=== PATIENT | female | born 1990 | race American Indian/Alaskan Native ===

== ENCOUNTER 2017-05-21 18:48 | Emergency (ER) | payer MEDICAID, OTHER ==
[2017-05-21 18:49] VITALS: BMI 37.5
[2017-05-21 18:57] VITALS: BP 118/74; PULSE 74; RESP 18; TEMP 97.9; O2SAT 99
--- NOTE | 2017-05-21 19:12 | ED PDOC ---
HPI: General Adult Time Seen by Provider: 05/21/17 18:57 Chief Complaint (Nursing): Medical Clearance Chief Complaint (Provider): No current symptoms History Per: Patient History/Exam Limitations: no limitations Onset/Duration Of Symptoms: Days Have you had recent travel within the past 21 days to any of the following countries: [place], [place], [place] or [place]?: No Current Symptoms Are (Timing): Still Present Additional Complaint(s): Pt reports 2 days of nausea and watery diarrhea, which have already resolved. Pt called out of work and needs a note to return tomorrow. Past Medical History Reviewed: Historical Data, Nursing Documentation, Vital Signs Vital Signs: Last Vital Signs Temp 97.9 F 05/21/17 18:55 Pulse 74 05/21/17 18:55 Resp 18 05/21/17 18:55 BP 118/74 05/21/17 18:55 Pulse Ox 99 05/21/17 19:17 - Medical History PMH: Anemia, Migraine Denies: Emphysema, Chronic Kidney Disease - Surgical History Surgical History: No Surg Hx - Family History Family History: States: Unknown Family Hx - Living Arrangements Living Arrangements: With Family - Social History Current smoker - smoking cessation education provided: No Alcohol: None Drugs: Denies - Immunization History Hx Tetanus Toxoid Vaccination: Yes - Home Medications Home Medications: Ambulatory Orders Medication Instructions Recorded Ciprofloxacin HCl [Cipro] 500 mg PO BID #10 tablet 03/07/16 Docusate [Colace] 100 mg PO BID #0 cap 03/07/16 Ferrous Sulfate [Feosol] 325 mg PO BID #0 tablet 03/07/16 Metronidazole [Flagyl] 500 mg PO Q8 #15 tablet 03/07/16 - Allergies Allergies/Adverse Reactions: Allergies Allergy/AdvReac Type Severity Reaction Status Date / Time No Known Allergies Allergy Verified 01/02/16 14:50 Review of Systems ROS Statement: Except As Marked, All Systems Reviewed And Found Negative Gastrointestinal: Negative for: Nausea, Vomiting, Abdominal Pain, Diarrhea Physical Exam - Reviewed Nursing Documentation Reviewed: Yes Vital Signs Reviewed: Yes - Physical Exam Appears: Positive for: Well, Non-toxic, No Acute Distress Head Exam: Positive for: ATRAUMATIC, NORMAL INSPECTION, NORMOCEPHALIC Skin: Positive for: Normal Color, Warm, DRY Eye Exam: Positive for: Normal appearance ENT: Positive for: Normal ENT Inspection Neck: Positive for: Normal, Painless ROM Cardiovascular/Chest: Positive for: Regular Rate, Rhythm Respiratory: Positive for: CNT, Normal Breath Sounds Gastrointestinal/Abdominal: Positive for: Normal Exam, Bowel Sounds, Soft Back: Positive for: Normal Inspection Extremity: Positive for: Normal ROM Neurologic/Psych: Positive for: Alert, Oriented - ECG O2 Sat by Pulse Oximetry: 99 Disposition - Clinical Impression Clinical Impression: Normal exam - Patient ED Disposition Is Patient to be Admitted: No - Disposition Disposition: Routine/Home Disposition Time: 19:18 Condition: GOOD Instructions: Normal Exam (ED) Forms: [facility] ED School/Work Excuse
== END 2017-05-21 19:53 | disposition home or self-care (01) ==
LOC: H.ER 18:48
DX: Z00.8 Encounter for other general examination (principal)

== ENCOUNTER 2017-11-21 10:23 | Emergency (ER) | payer OTHER ==
[2017-11-21 10:24] VITALS: BMI 37.5
[2017-11-21 10:54] VITALS: BP 108/70; PULSE 83; RESP 18; TEMP 97; O2SAT 100
[2017-11-21 12:23] LABS: SPERM URINE RARE /hpf; SQUAMOUS EPITHIAL 8 /hpf (0-5); URINE AMORPHOUS SEDIMENT RARE /ul (<OCC); URINE BILIRUBIN NEGATIVE (NEGATIVE); URINE BLOOD SMALL (NEGATIVE); URINE CLARITY CLOUDY (Clear); URINE COLOR YELLOW (YELLOW); URINE GLUCOSE (UA) NEG (Normal); URINE LEUKOCYTE ESTERASE SMALL Leu/uL (Negative); URINE NITRATE NEGATIVE (NEGATIVE); URINE PROTEIN NEGATIVE (NEGATIVE); URINE UROBILINOGEN 0.2-1.0 mg/dL (0.2-1.0)
--- NOTE | 2017-11-21 12:51 | ED PDOC ---
HPI: Abdomen Time Seen by Provider: 11/21/17 10:51 Chief Complaint (Nursing): Abdominal Pain History Per: Patient History/Exam Limitations: no limitations Onset/Duration Of Symptoms: Days (2), Gradual Current Symptoms Are (Timing): Still Present Severity: Mild Location Of Pain/Discomfort: RUQ Quality Of Discomfort: Sharp Associated Symptoms: Nausea, Vomiting. denies: Fever, Chills, Diarrhea, Back Pain, Chest Pain, Constipation, Urinary Symptoms Exacerbating Factors: None Alleviating Factors: None Additional History Per: Patient Additional Complaint(s): Pt c/o abdominal pain, nausea, vomiting x1 day. LMP: 10/18/2017 similar sx in the past due cholecystitis a year ago, no trauma no urinary complaints Past Medical History Reviewed: Historical Data, Nursing Documentation, Vital Signs Vital Signs: Last Vital Signs Temp 97 F L 11/21/17 10:53 Pulse 83 11/21/17 10:53 Resp 18 11/21/17 10:53 BP 108/70 11/21/17 10:53 Pulse Ox 100 11/21/17 12:52 - Medical History PMH: Anemia, Migraine Denies: Emphysema, Chronic Kidney Disease - Family History Family History: States: Unknown Family Hx - Living Arrangements Living Arrangements: With Family - Social History Current smoker - smoking cessation education provided: No - Immunization History Hx Tetanus Toxoid Vaccination: Yes - Home Medications Home Medications: Ambulatory Orders Medication Instructions Recorded Ciprofloxacin HCl [Cipro] 500 mg PO BID #10 tablet 03/07/16 Docusate [Colace] 100 mg PO BID #0 cap 03/07/16 Ferrous Sulfate [Feosol] 325 mg PO BID #0 tablet 03/07/16 Metronidazole [Flagyl] 500 mg PO Q8 #15 tablet 03/07/16 Famotidine [Pepcid] 20 mg PO BID PRN #20 tab 11/21/17 Ondansetron [Zofran Odt] 4 mg PO TID PRN #14 odt 11/21/17 - Allergies Allergies/Adverse Reactions: Allergies Allergy/AdvReac Type Severity Reaction Status Date / Time No Known Allergies Allergy Verified 01/02/16 14:50 Review of Systems ROS Statement: Except As Marked, All Systems Reviewed And Found Negative Constitutional: Negative for: Fever, Chills Cardiovascular: Negative for: Chest Pain, Palpitations Respiratory: Negative for: Cough, Shortness of Breath Gastrointestinal: Positive for: Nausea, Vomiting, Abdominal Pain. Negative for : Diarrhea Genitourinary Female: Negative for: Dysuria Neurological: Negative for: Weakness, Numbness Physical Exam - Reviewed Nursing Documentation Reviewed: Yes Vital Signs Reviewed: Yes - Physical Exam Appears: Positive for: Uncomfortable Head Exam: Positive for: ATRAUMATIC, NORMAL INSPECTION, NORMOCEPHALIC Eye Exam: Positive for: Normal appearance Neck: Positive for: Normal, Painless ROM, Supple Cardiovascular/Chest: Positive for: Regular Rate, Rhythm, Chest Non Tender. Negative for: Edema, Gallop, Murmur, Bradycardia, Tachycardia Respiratory: Positive for: Normal Breath Sounds. Negative for: Decreased Breath Sounds, Accessory Muscle Use, Crackles, Rales, Rhonchi, Stridor, Wheezing , Respiratory Distress Pulses-Radial (L): 2+ Pulses-Radial (R): 2+ Gastrointestinal/Abdominal: Positive for: Normal Exam, Bowel Sounds, Soft. Negative for: Tenderness Back: Positive for: Normal Inspection. Negative for: L CVA Tenderness, R CVA Tenderness Extremity: Positive for: Normal ROM. Negative for: Tenderness, Pedal Edema, Calf Tenderness, Capillary Refill, Deformity, Swelling Neurologic/Psych: Positive for: Alert, manager medicaid II-XII, Oriented. Negative for: Motor/Sensory Deficits - Laboratory Results Result Diagrams: 11/21/17 12:58 11/21/17 12:58 - ECG O2 Sat by Pulse Oximetry: 100 - Progress ED Course And Treament: CT abdomen and pelvis with IV contrast performed 03/05/16, abdominal ultrasound performed 03/05/16 TECHNIQUE: Sonographic evaluation of the right upper quadrant of the abdomen. FINDINGS: LIVER: Measures 19.5 cm in length and appears otherwise unremarkable. No focal hepatic mass identified. Main portal vein appears patent with normal directional flow. No intrahepatic bile duct dilatation. GALLBLADDER: No gallstones. Previously described 5 mm non shadowing echogenic focus on ultrasound performed 03/05/16 is not appreciated on the current examination. No gallbladder wall thickening or pericholecystic edema. Negative sonographic Roach's sign as assessed by the pearl restorer. COMMON BILE DUCT: Measures 4 mm. PANCREAS: Not well-visualized. RIGHT KIDNEY: Measures 9.9 x 4.2 x 5.0 cm. No obstructing calculus or hydronephrosis identified. AORTA: Limited visualization appears grossly unremarkable. IVC: Limited visualization appears grossly unremarkable. OTHER FINDINGS: None . IMPRESSION: Mild hepatomegaly. Re-evaluation Time: 15:23 Condition: Improved Disposition - Clinical Impression Clinical Impression: Gastritis - Patient ED Disposition Is Patient to be Admitted: No Counseled Patient/Family Regarding: Studies Performed, Diagnosis, Need For Followup, Rx Given - Disposition Referrals: [facility] [Outside] (2 to 3 days) Disposition: Routine/Home Disposition Time: 15:24 Condition: GOOD Prescriptions: Famotidine [Pepcid] 20 mg PO BID PRN #20 tab PRN Reason: Pain, Mild (1-3) Ondansetron [Zofran Odt] 4 mg PO TID PRN #14 odt PRN Reason: Nausea/Vomiting Instructions: Gastritis (ED) Forms: [facility] (Sammarinese), [facility] ED School/Work Excuse
[2017-11-21 13:08] LABS: BASO % 0.3 % (0.0-2.0); EOS # 0.1 K/uL (0.0-0.7); EOS % 0.8 % (0.0-4.0); LYMPH # 1.2 K/uL (1.0-4.3); MEAN CELL VOLUME 78.5 fl (81.0-99.0); MEAN CORPUSCULAR HGB CONC 31.9 g/dL (33.0-37.0); MONO # 0.6 K/uL (0.0-0.8); MONO % 5.9 % (0.0-10.0); NRBC % 0.2 % (0.0-0.0); RBC 4.39 Mil/uL (3.80-5.20); RED CELL DISTRIBUTION WIDTH 17.6 % (11.5-14.5)
[2017-11-21 13:18] LABS: ALT/SGPT 37 U/L (9-52); AMYLASE 67 U/L (30-110); AST/SGOT 21 U/L (14-36); BLOOD UREA NITROGEN 9 mg/dl (7-17); CALCIUM 9.2 mg/dL (8.4-10.2); GFR AFRICAN-AMERICAN > 60; GFR NON-AFRICAN AMERICAN > 60; LIPASE 37 U/L (23-300)
[2017-11-21 13:20] LABS: ALB/GLOB RATIO 0.9 (1.0-2.1)
[2017-11-21 13:23] LABS: WHITE BLOOD COUNT 9.9 K/uL (4.8-10.8)
--- NOTE | 2017-11-21 14:24 | RAD ---
HISTORY: abd pain COMPARISON: No prior. FINDINGS: BOWEL: There is a nonobstructive bowel gas pattern appreciated. Gas and retained fecal material seen throughout various large-bowel segments mildly and is minimally seen within 1 or 2 small-bowel loops in the left mony abdomen. No free intraperitoneal gas identified. There is no abnormal intra-abdominal calcification identified either. BONES: Normal. OTHER FINDINGS: Borderline cardiomegaly with frontal chest radiograph otherwise unremarkable. IMPRESSION: Nonobstructive bowel gas pattern is identified. Borderline cardiomegaly with a frontal chest radiograph otherwise unremarkable.
--- NOTE | 2017-11-21 15:21 | US ---
HISTORY: ruq abd pain COMPARISON: CT abdomen and pelvis with IV contrast performed 03/05/16, abdominal ultrasound performed 03/05/16 TECHNIQUE: Sonographic evaluation of the right upper quadrant of the abdomen. FINDINGS: LIVER: Measures 19.5 cm in length and appears otherwise unremarkable. No focal hepatic mass identified. Main portal vein appears patent with normal directional flow. No intrahepatic bile duct dilatation. GALLBLADDER: No gallstones. Previously described 5 mm non shadowing echogenic focus on ultrasound performed 03/05/16 is not appreciated on the current examination. No gallbladder wall thickening or pericholecystic edema. Negative sonographic Roach's sign as assessed by the financial foundations associate. COMMON BILE DUCT: Measures 4 mm. PANCREAS: Not well-visualized. RIGHT KIDNEY: Measures 9.9 x 4.2 x 5.0 cm. No obstructing calculus or hydronephrosis identified. AORTA: Limited visualization appears grossly unremarkable. IVC: Limited visualization appears grossly unremarkable. OTHER FINDINGS: None . IMPRESSION: Mild hepatomegaly.
== END 2017-11-21 15:41 | disposition home or self-care (01) ==
LOC: H.ER 10:23
DX: K29.70 Gastritis, unspecified, without bleeding (principal)
CPT/HCPCS: 74022; 76705; 80053; 81003; 81025; 82150; 83690; 85025; 87086; 87181; 87491; 87591; 96374; 99283; J1885

== ENCOUNTER 2017-12-31 18:41 | Emergency (ER) | payer OTHER ==
[2017-12-31 18:41] VITALS: BMI 37.5
[2017-12-31 18:44] VITALS: BP 105/67; PULSE 80; RESP 16; TEMP 98.3; O2SAT 98
--- NOTE | 2017-12-31 20:20 | ED PDOC ---
HPI: General Adult Time Seen by Provider: 12/31/17 20:18 Chief Complaint (Nursing): Medical Clearance Chief Complaint (Provider): Medical Clearance History Per: Patient History/Exam Limitations: no limitations Have you had recent travel within the past 21 days to any of the following countries: [place], [place], [place] or [place]?: No Current Symptoms Are (Timing): Gone Now Additional Complaint(s): 27 year old female with no medical history presents to ED with a request for occupational medical clearance. Patient states that two days ago she had vomiting x3 episodes (non-bloody, non-bilious) which is now resolved associated with diarrhea x3 episodes/per day since onset. Patient reports she did experience mild abdominal pain with her symptoms that resolved spontaneously yesterday. States that her daughter was sick with the same symptoms earlier in the week as well. Otherwise (-) fever (-) cough (-) chest pain (-) SOB (-) travel (-) new foods (-) vaginal bleeding (-) vaginal discharge (-) urinary symptoms. PCP: None Past Medical History Reviewed: Historical Data, Nursing Documentation, Vital Signs Vital Signs: Last Vital Signs Temp 98.3 F 12/31/17 18:42 Pulse 80 12/31/17 18:42 Resp 16 12/31/17 18:42 BP 105/67 12/31/17 18:42 Pulse Ox 98 12/31/17 22:26 - Medical History PMH: Anemia, Migraine Denies: Emphysema, Chronic Kidney Disease - Surgical History Surgical History: No Surg Hx - Family History Family History: States: Unknown Family Hx - Living Arrangements Living Arrangements: With Family - Social History Current smoker - smoking cessation education provided: No Ex-Smoker (has not smoked in the last 12 months): No Alcohol: None Drugs: Denies - Immunization History Hx Tetanus Toxoid Vaccination: Yes - Home Medications Home Medications: Ambulatory Orders Medication Instructions Recorded Ciprofloxacin HCl [Cipro] 500 mg PO BID #10 tablet 03/07/16 Docusate [Colace] 100 mg PO BID #0 cap 03/07/16 Ferrous Sulfate [Feosol] 325 mg PO BID #0 tablet 03/07/16 Metronidazole [Flagyl] 500 mg PO Q8 #15 tablet 03/07/16 Famotidine [Pepcid] 20 mg PO BID PRN #20 tab 11/21/17 Ondansetron [Zofran Odt] 4 mg PO TID PRN #14 odt 11/21/17 Ciprofloxacin [Cipro] 500 mg PO BID #10 tab 11/23/17 - Allergies Allergies/Adverse Reactions: Allergies Allergy/AdvReac Type Severity Reaction Status Date / Time No Known Allergies Allergy Verified 12/31/17 18:42 Review of Systems ROS Statement: Except As Marked, All Systems Reviewed And Found Negative Gastrointestinal: Positive for: Vomiting (resolved), Abdominal Pain (resolved), Diarrhea (still present) Physical Exam - Reviewed Nursing Documentation Reviewed: Yes Vital Signs Reviewed: Yes - Physical Exam Appears: Positive for: Well, Non-toxic, No Acute Distress Head Exam: Positive for: NORMOCEPHALIC Skin: Positive for: Normal Color, Warm, Dry Eye Exam: Positive for: Normal appearance ENT: Positive for: Normal ENT Inspection Neck: Positive for: Normal, Painless ROM, Supple Cardiovascular/Chest: Positive for: Regular Rate, Rhythm. Negative for: Murmur Respiratory: Positive for: Normal Breath Sounds. Negative for: Decreased Breath Sounds, Accessory Muscle Use, Respiratory Distress Gastrointestinal/Abdominal: Positive for: Normal Exam, Bowel Sounds (normal), Soft. Negative for: Tenderness, Mass, Distended, Guarding, Rebound Back: Positive for: Normal Inspection. Negative for: L CVA Tenderness, R CVA Tenderness Extremity: Positive for: Normal ROM. Negative for: Deformity Neurologic/Psych: Positive for: Alert, Oriented, Gait (steady). Negative for: Motor/Sensory Deficits - ECG O2 Sat by Pulse Oximetry: 98 (RA) Pulse Ox Interpretation: Normal Medical Decision Making Medical Decision Makin Initial impression: resolved vomiting, diarrhea, likely viral gastroenteritis Initial plan: * Bentyl 20mg PO * Re-eval 2220 Patient with improvement of presenting symptoms and is stable for discharge home. Condition: stable Patient advised to follow up with PMD/clinic in 1-2 days and to return to ED with any new or worsening symptoms. Scribe Attestation: Documented by Kori Aceves, acting as a scribe for Jennifer Bain PA-C. Provider Scribe Attestation: All medical record entries made by the Scribe were at my direction and personally dictated by me. I have reviewed the chart and agree that the record accurately reflects my personal performance of the history, physical exam, medical decision making, and the department course for this patient. I have also personally directed, reviewed, and agree with the discharge instructions and disposition. Disposition - Clinical Impression Clinical Impression: Diarrhea - Patient ED Disposition Is Patient to be Admitted: No Counseled Patient/Family Regarding: Diagnosis, Need For Followup - Disposition Disposition: Routine/Home Disposition Time: 22:21 Condition: STABLE Instructions: Gastroenteritis (ED), Acute Diarrhea (ED) Forms: [employer] (Slovenian) Print Language: SPANISH
== END 2018-01-01 00:22 | disposition home or self-care (01) ==
LOC: H.ER 18:41
DX: R19.7 Diarrhea, unspecified (principal)

== ENCOUNTER 2018-05-06 13:00 | Emergency (ER) | payer OTHER ==
[2018-05-06 13:01] VITALS: BMI 37.5
[2018-05-06 13:56] LABS: BASO % 0.4 % (0.0-2.0); EOS # 0.2 K/uL (0.0-0.7); HEMOGLOBIN 10.7 g/dL (12.0-16.0); LYMPH # 2.1 K/uL (1.0-4.3); LYMPH % 21.2 % (20.0-40.0); MEAN CELL VOLUME 80.2 fl (81.0-99.0); MEAN CORPUSCULAR HGB CONC 32.4 g/dL (33.0-37.0); MEAN PLATELET VOLUME 7.7 fl (7.2-11.7); MONO # 0.6 K/uL (0.0-0.8); MONO % 6.2 % (0.0-10.0); NEUT % 70.2 % (50.0-75.0); NRBC % 0.1 % (0.0-0.0); RBC 4.09 Mil/uL (3.80-5.20); RED CELL DISTRIBUTION WIDTH 17.6 % (11.5-14.5)
--- NOTE | 2018-05-06 14:08 | ED PDOC ---
HPI: General Adult Time Seen by Provider: 05/06/18 13:14 Chief Complaint (Nursing): Weakness/Neurological Deficit Chief Complaint (Provider): Left Arm Numbness and Tingling History Per: Patient History/Exam Limitations: no limitations Onset/Duration Of Symptoms: Days (x1 week) Additional Complaint(s): 7 y/o female with no significant PMHx presenting for evaluation of left arm numbness and tingling x1 week. Patient has been seen several times for paresthesias and has never followed up as outpatient and has no current PMD. She states the sensation begins in her left shoulder and radiates down her arm. She is also complaining of some acute left arm swelling and mild headache. She denies any trauma, neck pain, fevers, or vomiting. Patient reports her numbness and tingling have been intermittent for months, but concern of the swelling prompted her to present to ED. PMD: None Past Medical History Reviewed: Historical Data Vital Signs: Last Vital Signs Temp 98.8 F 05/06/18 18:18 Pulse 89 05/06/18 18:18 Resp 19 05/06/18 18:18 BP 104/68 05/06/18 18:18 Pulse Ox 99 05/06/18 18:18 - Medical History PMH: Anemia, Migraine Denies: Emphysema, Chronic Kidney Disease - Surgical History Surgical History: No Surg Hx - Family History Family History: States: Unknown Family Hx - Social History Current smoker - smoking cessation education provided: No Alcohol: None Drugs: Denies - Immunization History Hx Tetanus Toxoid Vaccination: Yes - Home Medications Home Medications: Ambulatory Orders Medication Instructions Recorded Ciprofloxacin HCl [Cipro] 500 mg PO BID #10 tablet 03/07/16 Docusate [Colace] 100 mg PO BID #0 cap 03/07/16 Ferrous Sulfate [Feosol] 325 mg PO BID #0 tablet 03/07/16 Metronidazole [Flagyl] 500 mg PO Q8 #15 tablet 03/07/16 Famotidine [Pepcid] 20 mg PO BID PRN #20 tab 11/21/17 Ondansetron [Zofran Odt] 4 mg PO TID PRN #14 odt 11/21/17 Ciprofloxacin [Cipro] 500 mg PO BID #10 tab 11/23/17 - Allergies Allergies/Adverse Reactions: Allergies Allergy/AdvReac Type Severity Reaction Status Date / Time No Known Allergies Allergy Verified 05/06/18 13:06 Review of Systems ROS Statement: Except As Marked, All Systems Reviewed And Found Negative Constitutional: Negative for: Fever Gastrointestinal: Negative for: Vomiting Musculoskeletal: Negative for: Neck Pain Neurological: Positive for: Numbness (and tingling of left arm), Headache Physical Exam - Reviewed Nursing Documentation Reviewed: Yes Vital Signs Reviewed: Yes - Physical Exam Appears: Positive for: Non-toxic, No Acute Distress Head Exam: Positive for: ATRAUMATIC, NORMAL INSPECTION, NORMOCEPHALIC Skin: Positive for: Normal Color, Warm, Dry Eye Exam: Positive for: EOMI, Normal appearance, PERRL ENT: Positive for: Normal ENT Inspection Neck: Positive for: Normal, Painless ROM, Supple Cardiovascular/Chest: Positive for: Regular Rate, Rhythm Respiratory: Positive for: Normal Breath Sounds. Negative for: Respiratory Distress Gastrointestinal/Abdominal: Positive for: Normal Exam, Soft. Negative for: Tenderness Back: Positive for: Normal Inspection. Negative for: L CVA Tenderness, R CVA Tenderness, Vertebral Tenderness Extremity: Positive for: Normal ROM, Swelling (swelling to left wrist) Neurologic/Psych: Positive for: Alert, stain maker II-XII (intact), Oriented, Cerebellar Tests (normal). Negative for: Motor/Sensory Deficits, Aphasia, Facial Droop Comments: Patient is obese. - Laboratory Results Result Diagrams: 05/06/18 13:45 05/06/18 13:45 - ECG ECG: Positive for: Interpreted By Me, Viewed By Co ECG Rhythm: Positive for: Sinus Rhythm (normal at 70bpm) O2 Sat by Pulse Oximetry: 100 (RA) Pulse Ox Interpretation: Normal Medical Decision Making Medical Decision Makin:19 Plan: -CT cervical spine w/o contrast -CT head w/o contrast -CMP -CBC w/ differential -Reevaluation 14:[address] FINDINGS: HEMORRHAGE: No intracranial hemorrhage. BRAIN: No mass effect or edema. No atrophy or chronic microvascular ischemic changes. VENTRICLES: Unremarkable. No hydrocephalus. CALVARIUM: Unremarkable. PARANASAL SINUSES: A partially visualize flat retention cyst in the posterior medial left maxillary sinus is noted. MASTOID AIR CELLS: Unremarkable as visualized. No inflammatory changes. OTHER FINDINGS: None. IMPRESSION: Incidental small flat retention cyst posterior medial left maxillary sinus. Otherwise unremarkable exam. No intracranial hemorrhage or mass effect. 15:38 US of LUE will be ordered for further evaluation. 16:[address] FINDINGS: VERTEBRAE: No fracture. Loss of normal lordosis may be related to positioning/ spasm. No destructive bony lesion. DISCS/SPINAL CANAL/NEURAL FORAMINA: No significant central canal or neural foraminal stenosis. Discs heights are grossly preserved. PARASPINAL SOFT TISSUES: Unremarkable. OTHER FINDINGS: None. IMPRESSION: No acute fracture. Loss of normal cervical lordosis may be related to positioning/ spasm. 17:18 LEFT UPPER EXTREMITY US FINDINGS: Normal flow, compressibility and respiratory phasicity was observed in the the left upper extremity deep veins. IMPRESSION: No evidence of deep venous thrombosis. 17:36 Patient made aware of all imaging results. Lab work came back showing anemia, which patient was also made aware of. All questions were answered at this time. Scribe Attestation: Documented by Perfecto Anthony and Alina Brian, acting as scribes for Hetal Honeycutt MD. Provider Scribe Attestation: All medical record entries made by the Scribe were at my direction and personally dictated by me. I have reviewed the chart and agree that the record accurately reflects my personal performance of the history, physical exam, medical decision making, and the department course for this patient. I have also personally directed, reviewed, and agree with the discharge instructions and disposition. Disposition - Clinical Impression Clinical Impression: Arm paresthesia, left - Disposition Referrals: [facility] [Outside] Ely Hoffman MD [Medical Doctor] - Condition: IMPROVED Additional Instructions: follow up with your primary doctor/neurologist in 1-2 days return to the ED with any worsening or concerning symptoms Instructions: Anemia Caused by Low Iron, Paresthesias (DC) Forms: [employer] (Tajik)
[2018-05-06 14:14] LABS: ALB/GLOB RATIO 0.9 (1.0-2.1); ALBUMIN 3.8 g/dL (3.5-5.0); ALT/SGPT 34 U/L (9-52); AST/SGOT 23 U/L (14-36); BLOOD UREA NITROGEN 10 mg/dl (7-17); CALCIUM 8.9 mg/dL (8.4-10.2); GFR AFRICAN-AMERICAN > 60; GFR NON-AFRICAN AMERICAN > 60
--- NOTE | 2018-05-06 14:48 | CT ---
PROCEDURE: CT HEAD WITHOUT CONTRAST. HISTORY: headache COMPARISON: None available. TECHNIQUE: Axial computed tomography images were obtained through the head/brain without intravenous contrast. Radiation dose: Total exam DLP = 944 mGy-cm. This CT exam was performed using one or more of the following dose reduction techniques: Automated exposure control, adjustment of the mA and/or kV according to patient size, and/or use of iterative reconstruction technique. FINDINGS: HEMORRHAGE: No intracranial hemorrhage. BRAIN: No mass effect or edema. No atrophy or chronic microvascular ischemic changes. VENTRICLES: Unremarkable. No hydrocephalus. CALVARIUM: Unremarkable. PARANASAL SINUSES: A partially visualize flat retention cyst in the posterior medial left maxillary sinus is noted. MASTOID AIR CELLS: Unremarkable as visualized. No inflammatory changes. OTHER FINDINGS: None. IMPRESSION: Incidental small flat retention cyst posterior medial left maxillary sinus. Otherwise unremarkable exam. No intracranial hemorrhage or mass effect.
--- NOTE | 2018-05-06 16:07 | CT ---
PROCEDURE: CT Cervical Spine without contrast HISTORY: left arm parastheisa COMPARISON: None available. TECHNIQUE: Axial computed tomography images were obtained of the cervical spine without the use of intravenous contrast. Coronal and sagittal reformatted images were created and reviewed. Radiation dose: Total exam DLP = 725.6 mGy-cm. This CT exam was performed using one or more of the following dose reduction techniques: Automated exposure control, adjustment of the mA and/or kV according to patient size, and/or use of iterative reconstruction technique. FINDINGS: VERTEBRAE: No fracture. Loss of normal lordosis may be related to positioning/ spasm. No destructive bony lesion. DISCS/SPINAL CANAL/NEURAL FORAMINA: No significant central canal or neural foraminal stenosis. Discs heights are grossly preserved. PARASPINAL SOFT TISSUES: Unremarkable. OTHER FINDINGS: None. IMPRESSION: No acute fracture. Loss of normal cervical lordosis may be related to positioning/ spasm.
--- NOTE | 2018-05-06 17:20 | US ---
PROCEDURE: Left Upper Extremity Venous Doppler HISTORY: l arm swelling COMPARISON: None available. TECHNIQUE: Left upper extremity deep veins, including the lower internal jugular, subclavian, axillary and brachial veins, were evaluated flow, compressibility and respiratory phasicity. Cephalic, basilic, radial and ulnar veins were also evaluated. FINDINGS: Normal flow, compressibility and respiratory phasicity was observed in the the left upper extremity deep veins. IMPRESSION: No evidence of deep venous thrombosis.
[2018-05-06 18:18] VITALS: BP 104/68; PULSE 89; RESP 19; TEMP 98.8
[2018-05-06 18:29] VITALS: O2SAT 100
--- NOTE | 2018-05-07 08:05 | CARD ---
APPROVED REPORT EKG Measurement Heart [id number] <Conclusion> Normal sinus rhythm Normal ECG
== END 2018-05-06 18:43 | disposition home or self-care (01) ==
LOC: H.ER 13:00
DX: R20.2 Paresthesia of skin (principal); D64.9 Anemia, unspecified

== ENCOUNTER 2018-10-05 09:18 | Emergency (ER) | payer OTHER ==
[2018-10-05 09:32] VITALS: BMI 40.7
[2018-10-05 09:33] VITALS: TEMP 97.9; O2SAT 99
--- NOTE | 2018-10-05 10:52 | ED PDOC ---
Upper Extremity Pain/Injury Time Seen by Provider: 10/05/18 10:23 Chief Complaint (Nursing): Upper Extremity Problem/Injury Chief Complaint (Provider): Right upper arm pain, not now History Per: Patient History/Exam Limitations: no limitations Onset/Duration Of Symptoms: Days Additional Complaint(s): 27 yo female present for evaluation of intermittent pain in the right inner arm. Pt state she had norplant placed 1 year ago in location. Pt states sometimes she feels pain in the area and sometimes she feels the area is swollen. PT states it currently is not swollen and there is no pain. No fever/chills. No drainage from site of pain. Past Medical History Reviewed: Historical Data, Nursing Documentation, Vital Signs Vital Signs: Last Vital Signs Temp 97.9 F 10/05/18 09:32 Pulse 89 10/05/18 09:32 Resp 20 10/05/18 09:32 BP 136/85 10/05/18 09:32 Pulse Ox 99 10/05/18 09:32 - Medical History PMH: Anemia, Migraine Denies: Emphysema, Chronic Kidney Disease - Surgical History Surgical History: No Surg Hx - Family History Family History: States: Unknown Family Hx - Immunization History Hx Tetanus Toxoid Vaccination: Yes - Home Medications Home Medications: Ambulatory Orders Medication Instructions Recorded Ciprofloxacin HCl [Cipro] 500 mg PO BID #10 tablet 03/07/16 Docusate [Colace] 100 mg PO BID #0 cap 03/07/16 Ferrous Sulfate [Feosol] 325 mg PO BID #0 tablet 03/07/16 Metronidazole [Flagyl] 500 mg PO Q8 #15 tablet 03/07/16 Famotidine [Pepcid] 20 mg PO BID PRN #20 tab 11/21/17 Ondansetron [Zofran Odt] 4 mg PO TID PRN #14 odt 11/21/17 Ciprofloxacin [Cipro] 500 mg PO BID #10 tab 11/23/17 - Allergies Allergies/Adverse Reactions: Allergies Allergy/AdvReac Type Severity Reaction Status Date / Time No Known Allergies Allergy Verified 10/05/18 09:47 Review of Systems ROS Statement: Except As Marked, All Systems Reviewed And Found Negative Constitutional: Negative for: Fever, Chills Musculoskeletal: Positive for: Arm Pain. Negative for: Neck Pain Physical Exam - Reviewed Nursing Documentation Reviewed: Yes Vital Signs Reviewed: Yes - Physical Exam Appears: Positive for: Well, Non-toxic, No Acute Distress Head Exam: Positive for: ATRAUMATIC, NORMAL INSPECTION, NORMOCEPHALIC Skin: Positive for: Normal Color (No erythema, tenderness, edema or ecchymosis on the right inner arm ), Warm Eye Exam: Positive for: Normal appearance ENT: Positive for: Normal ENT Inspection Neck: Positive for: Normal Cardiovascular/Chest: Negative for: Bradycardia, Tachycardia Respiratory: Negative for: Accessory Muscle Use, Respiratory Distress Back: Positive for: Normal Inspection Extremity: Positive for: Normal ROM Neurologic/Psych: Positive for: Alert, Oriented - ECG O2 Sat by Pulse Oximetry: 99 Medical Decision Making Medical Decision Making: Discussed f/u with [facility] for yearly exam and evaluation of norplant or return to ER when she is having symptoms. Disposition - Clinical Impression Clinical Impression: Norplant in place - Patient ED Disposition Is Patient to be Admitted: No - Disposition Referrals: [facility] [Outside] [facility] [Outside] Disposition: Routine/Home Disposition Time: 10:51 Condition: GOOD Instructions: Control Options
[2018-10-05 11:35] VITALS: BP 130/80; PULSE 84; RESP 16
== END 2018-10-05 11:36 | disposition home or self-care (01) ==
LOC: H.ER 09:18
DX: M79.601 Pain in right arm (principal); Z30.46 Encounter for surveillance of implantable subdermal contraceptive

== ENCOUNTER 2018-11-16 10:10 | Emergency (ER) | payer OTHER ==
[2018-11-16 10:14] VITALS: RESP 18
[2018-11-16 10:25] VITALS: BMI 43.8
--- NOTE | 2018-11-16 11:15 | ED PDOC ---
HPI: CCC, URI, Sore Throat Time Seen by Provider: 11/16/18 10:41 Chief Complaint (Nursing): Headache Chief Complaint (Provider): Cough History Per: Patient History/Exam Limitations: no limitations Onset/Duration Of Symptoms: Days (yesterday) Additional Complaint(s): Cough, congestion, bodyaches since yesterday. Headaches frontal like her migraine, but not as bad. Not worst headache in her life. No neck pain, dyspnea, weakness, chest pain. Took tylenol in the morning. No vision changes. No numbness, tingles. Past Medical History Reviewed: Nursing Documentation, Vital Signs Vital Signs: Last Vital Signs Temp 98.7 F 11/16/18 10:13 Pulse 89 11/16/18 10:13 Resp 18 11/16/18 10:13 BP 112/76 11/16/18 10:13 Pulse Ox 98 11/16/18 10:13 - Medical History PMH: Anemia, Migraine Denies: Emphysema, Chronic Kidney Disease - Surgical History Surgical History: No Surg Hx - Family History Family History: States: Unknown Family Hx - Immunization History Hx Tetanus Toxoid Vaccination: Yes - Home Medications Home Medications: Ambulatory Orders Medication Instructions Recorded Ciprofloxacin HCl [Cipro] 500 mg PO BID #10 tablet 03/07/16 Docusate [Colace] 100 mg PO BID #0 cap 03/07/16 Ferrous Sulfate [Feosol] 325 mg PO BID #0 tablet 03/07/16 Metronidazole [Flagyl] 500 mg PO Q8 #15 tablet 03/07/16 Famotidine [Pepcid] 20 mg PO BID PRN #20 tab 11/21/17 Ondansetron [Zofran Odt] 4 mg PO TID PRN #14 odt 11/21/17 Ciprofloxacin [Cipro] 500 mg PO BID #10 tab 11/23/17 Ibuprofen [Motrin] 600 mg PO TID 7 Days tab 11/16/18 Oseltamivir Phosphate [Tamiflu] 75 mg PO BID 5 Days capsule 11/16/18 - Allergies Allergies/Adverse Reactions: Allergies Allergy/AdvReac Type Severity Reaction Status Date / Time No Known Allergies Allergy Verified 10/05/18 09:47 Review of Systems ROS Statement: Except As Marked, All Systems Reviewed And Found Negative Constitutional: Positive for: Fever ENT: Positive for: Nose Discharge, Nose Congestion Respiratory: Positive for: Cough Neurological: Positive for: Headache. Negative for: Dizziness Physical Exam - Reviewed Nursing Documentation Reviewed: Yes Vital Signs Reviewed: Yes - Physical Exam Appears: Positive for: Non-toxic, No Acute Distress Head Exam: Positive for: ATRAUMATIC, NORMAL INSPECTION, NORMOCEPHALIC Skin: Positive for: Normal Color, Warm, DRY Eye Exam: Positive for: EOMI, Normal appearance, PERRL ENT: Positive for: Nasal Congestion. Negative for: Pharyngeal Erythema, Tonsillar Exudate Neck: Positive for: Normal, Painless ROM, Supple Cardiovascular/Chest: Positive for: Regular Rate, Rhythm Respiratory: Positive for: CNT, Normal Breath Sounds Gastrointestinal/Abdominal: Positive for: Normal Exam, Soft. Negative for: Tenderness Back: Positive for: Normal Inspection. Negative for: L CVA Tenderness, R CVA Tenderness Extremity: Positive for: Normal ROM. Negative for: Tenderness, Pedal Edema Neurologic/Psych: Positive for: Alert, Oriented - Laboratory Results Interpretation Of Abn Labs: flu pos - ECG O2 Sat by Pulse Oximetry: 98 Pulse Ox Interpretation: Normal - Progress ED Course And Treament: 1327: Stable. AAOx3. Tolerated PO. Fu with pcp. Disposition - Clinical Impression Clinical Impression: Flu - Patient ED Disposition Is Patient to be Admitted: No Counseled Patient/Family Regarding: Studies Performed, Diagnosis, Need For Followup, Rx Given - Disposition [facility]errals: [facility]Outside[facility] - 11/18/18 Disposition: Routine/Home Disposition Time: 13:29 Condition: STABLE Additional Instructions: Return if not better in 3 days. Prescriptions: Ibuprofen [Motrin] 600 mg PO TID 7 Days tab Oseltamivir Phosphate [Tamiflu] 75 mg PO BID 5 Days capsule Instructions: Flu Forms: [facility] (Thai), [facility] School/Work Excuse
[2018-11-16 13:47] VITALS: BP 137/79; PULSE 80; TEMP 97.6; O2SAT 97
== END 2018-11-16 13:45 | disposition home or self-care (01) ==
LOC: H.ER 10:10
DX: J11.1 Influenza due to unidentified influenza virus with other respiratory manifestations (principal)